=== PATIENT | male | born 1985 | race Caucasian/White ===

== ENCOUNTER 2020-11-19 22:09 | Emergency (ER) | payer SELFPAY ==
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
[2020-11-19 23:08] VITALS: BP 138/90
== END 2020-11-19 22:50 | disposition home or self-care (01) ==
LOC: ED 22:09
DX: S61.412A Laceration without foreign body of left hand, initial encounter (principal); W26.0XXA Contact with knife, initial encounter; Y93.H3 Activity, building and construction; F17.200 Nicotine dependence, unspecified, uncomplicated
CPT/HCPCS: 12001; 99281; 99282